=== PATIENT | male | born 1960 | race Caucasian/White ===

== ENCOUNTER 2016-08-08 07:12 | Day surgery (SDC) | payer BC ==
[~2016-08-08] VITALS: Ht 188 cm; Wt 66000.0 kg
[~2016-08-08 07:12] MED LIST: ALFENTANIL 500 MCG/ML (ALFENTA) 5 ML AMP IV ONE; LACTATED RINGERS 1,000 ML IV SCH; MIDAZOLAM 2 MG/2 ML (VERSED) VIAL ONE; PROPOFOL 20 ML IV ONE; SODIUM CHLORIDE FLUSH 3 ML SYR IV PRN
[2016-08-08 07:21] VITALS: BP 109/63
[2016-08-08 07:38] VITALS: BP 109/63
[2016-08-08 08:20] VITALS: BP 92/44
[2016-08-08 08:34] VITALS: BP 105/60
[2016-08-08 08:56] VITALS: BP 119/60
== END 2016-08-08 09:33 | disposition home or self-care (01) ==
LOC: ASC 07:12
PROVIDERS: ATTEND Surgery
PROC: 0DJD8ZZ Inspection of Lower Intestinal Tract, Via Natural or Artificial Opening Endoscopic (ICD-10-PCS; principal; 2016-08-08)
DX: K92.1 Melena (principal); K59.00 Constipation, unspecified; R00.2 Palpitations; R06.00 Dyspnea, unspecified; R35.0 Frequency of micturition; R35.1 Nocturia; H35.52 Pigmentary retinal dystrophy; Z80.0 Family history of malignant neoplasm of digestive organs; F17.210 Nicotine dependence, cigarettes, uncomplicated
CPT/HCPCS: 45378; J2250; J7120

== ENCOUNTER → 2016-08-12 | Outpatient (CLI) | payer BC | LOC: RAD 13:22 | PROVIDERS: ATTEND Surgery | DX: E80.6 Other disorders of bilirubin metabolism (principal); R16.0 Hepatomegaly, not elsewhere classified | CPT/HCPCS: 76705 ==